=== PATIENT | female | born 1945 | race Caucasian/White ===

== ENCOUNTER → 2016-12-07 | Outpatient (CLI) | payer OTHER, MEDICARE ==
[~2016-12-07] MED LIST: AMOXICILLIN; BENICAR40 MG PO; MECLIZINE HCL12.5 MG PO; NORCO 5-325 TA1 EACH PO; ONDANSETRON HCL4 M2 PO; TRAMADOL 50 MG50 MG PO; TUMS PO; ZYRTEC
== END ==
LOC: RAD 09:51
DX: R22.1 Localized swelling, mass and lump, neck (principal)

== ENCOUNTER → 2017-02-28 | Outpatient (CLI) | payer OTHER, MEDICARE | LOC: ULTRA 08:28 | DX: M79.621 Pain in right upper arm (principal); M79.89 Other specified soft tissue disorders ==

== ENCOUNTER → 2018-08-03 | Outpatient (CLI) | payer OTHER, MEDICARE | LOC: NUC 08:11 | DX: M81.0 Age-related osteoporosis without current pathological fracture (principal); E28.39 Other primary ovarian failure ==

== ENCOUNTER → 2019-04-17 | Outpatient (CLI) | payer OTHER, MEDICARE | LOC: CAT 14:03 | DX: J32.9 Chronic sinusitis, unspecified (principal); G44.229 Chronic tension-type headache, not intractable; Z88.2 Allergy status to sulfonamides; Z88.8 Allergy status to other drugs, medicaments and biological substances ==

== ENCOUNTER → 2021-06-24 | Outpatient (CLI) | payer OTHER, MEDICARE | LOC: CAT 09:13 | PROVIDERS: ATTEND Family Medicine | DX: J34.2 Deviated nasal septum (principal); J34.89 Other specified disorders of nose and nasal sinuses; J32.9 Chronic sinusitis, unspecified; R59.0 Localized enlarged lymph nodes ==